=== PATIENT | female | born 2000 | race Caucasian/White ===

== ENCOUNTER 2022-10-16 23:43 | Emergency (ER) | payer OTHER ==
[2022-10-16 23:54] VITALS: BP 119/81; PULSE 74; RESP 16; TEMP 98.1
[2022-10-17] MEDS ORDERED: KETOROLAC 15 MG/ML 1 ML VIAL IM STA (00:18)
[2022-10-17] MEDS ORDERED: ORPHENADRINE 30 MG/ML 2 ML VIAL IM STA (00:18)
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
== END 2022-10-17 00:40 | disposition home or self-care (01) ==
LOC: EC 23:43
DX: S06.0X0A Concussion without loss of consciousness, initial encounter (principal); S86.912A Strain of unspecified muscle(s) and tendon(s) at lower leg level, left leg, initial encounter; S66.912A Strain of unspecified muscle, fascia and tendon at wrist and hand level, left hand, initial encounter; R40.2410 Glasgow coma scale score 13-15, unspecified time; Z88.0 Allergy status to penicillin; V43.62XA Car passenger injured in collision with other type car in traffic accident, initial encounter; Y92.410 Unspecified street and highway as the place of occurrence of the external cause
CPT/HCPCS: 96372 ×3; 99284 ×2; J2360; J1885